=== PATIENT | female | born 1980 | race Caucasian/White ===

== ENCOUNTER 2018-09-28 22:20 | Emergency (ER) | payer OTHER, MEDICAID ==
[~2018-09-28] VITALS: Ht 175.3 cm; Wt 83.9 kg
[~2018-09-28 22:20] MED LIST: ACETAMINOPHEN-1 EAC1 PO; CEPHALEXIN 500500 M3 PO; CLEOCIN HCL300 MG PO; DIFLUCAN150 M1 PO; FLAGYL500 MG PO; NORCO 5-325 TA1 EACH PO
[2018-09-28] MEDS ORDERED: NEURONTIN 300300 M1 PO (22:33)
[2018-09-28] MEDS ORDERED: XANAX1 MG PO (22:34)
[2018-09-29 00:20] LABS: URINE BILIRUBIN NEGATIVE (Negative); URINE BLOOD 1+ (Negative); URINE CLARITY CLEAR; URINE COLOR YELLOW; URINE GLUCOSE-RANDOM NEGATIVE (Negative); URINE KETONES NEGATIVE (Negative); URINE LEUKOCYTES-REFLEX 2+ (Negative); URINE NITRITE-REFLEX POSITIVE (Negative); URINE PROTEIN TRACE (Negative); URINE SPECIFIC GRAVITY >= 1.030 (1.005-1.030); URINE UROBILINOGEN 0.2 E.U./dl (0.2-1.0)
[2018-09-29 00:29] LABS: CASTS None Seen /LPF (None Seen); SQUAMOUS >10 Many /LPF (0-3)
[2018-09-29 00:30] LABS: CRYSTALS None Seen /LPF (None Seen)
[2018-09-29] MEDS ORDERED: FLAGYL500 M1 PO (01:14)
[2018-09-29 01:44] VITALS: BP 142/76
== END 2018-09-29 01:44 | disposition home or self-care (01) ==
LOC: M.ERS 22:20
PROVIDERS: Personal Emergency Response Attendant
DX: A59.00 Urogenital trichomoniasis, unspecified (principal); N76.0 Acute vaginitis; Z98.51 Tubal ligation status; Z98.890 Other specified postprocedural states; Z88.5 Allergy status to narcotic agent; Z88.2 Allergy status to sulfonamides

== ENCOUNTER 2019-04-10 08:52 | Emergency (ER) | payer OTHER, MEDICAID ==
[~2019-04-10] VITALS: Ht 175.3 cm; Wt 86.2 kg
[~2019-04-10 08:52] MED LIST changes: +FLAGYL500 M1 PO; +NEURONTIN 300300 M1 PO; +XANAX1 MG PO
[2019-04-10] MEDS ORDERED: NORCO 5-325 TA1 EAC1 PO (09:24)
[2019-04-10] MEDS ORDERED: AMOXICILLIN 50500 MG PO (09:24)
[2019-04-10 09:37] VITALS: BP 125/85
== END 2019-04-10 09:37 | disposition home or self-care (01) ==
LOC: M.ERS 08:52
DX: K02.9 Dental caries, unspecified (principal); Z88.2 Allergy status to sulfonamides; Z88.6 Allergy status to analgesic agent; Z98.51 Tubal ligation status; Z98.890 Other specified postprocedural states

== ENCOUNTER 2019-09-20 18:29 | Emergency (ER) | payer OTHER, MEDICAID ==
[~2019-09-20] VITALS: Ht 175.3 cm; Wt 85.7 kg
[~2019-09-20 18:29] MED LIST changes: +AMOXICILLIN 50500 MG PO; +NORCO 5-325 TA1 EAC1 PO
[2019-09-20] MEDS ORDERED: KETOCONAZOLE 2200 MG PO (18:48)
[2019-09-20] MEDS ORDERED: PHENTERMINE H37.5 MG PO (18:50)
[2019-09-20] MEDS ORDERED: DOXYCYCLINE 10100 MG PO (20:13)
[2019-09-20] MEDS ORDERED: NYSTATIN100000 UNI SW&SWALLOW (20:13)
[2019-09-20] MEDS ORDERED: NORCO 5-325 TA1 EAC2 PO (20:13)
[2019-09-20 21:25] VITALS: BP 113/71
== END 2019-09-20 21:15 | disposition home or self-care (01) ==
LOC: M.ERS 18:29
DX: B37.0 Candidal stomatitis (principal); J98.8 Other specified respiratory disorders; B97.89 Other viral agents as the cause of diseases classified elsewhere; B96.89 Other specified bacterial agents as the cause of diseases classified elsewhere; Z20.828 Contact with and (suspected) exposure to other viral communicable diseases; L53.9 Erythematous condition, unspecified; F17.210 Nicotine dependence, cigarettes, uncomplicated; Z88.6 Allergy status to analgesic agent; Z88.2 Allergy status to sulfonamides; Z98.51 Tubal ligation status; Z98.890 Other specified postprocedural states

== ENCOUNTER 2019-10-03 15:49 | Emergency (ER) | payer OTHER, MEDICAID ==
[~2019-10-03] VITALS: Ht 175.3 cm; Wt 82.6 kg
[~2019-10-03 15:49] MED LIST changes: +DOXYCYCLINE 10100 MG PO; +KETOCONAZOLE 2200 MG PO; +NORCO 5-325 TA1 EAC2 PO; +NYSTATIN100000 UNI SW&SWALLOW; +PHENTERMINE H37.5 MG PO
[2019-10-03] MEDS ORDERED: KETOCONAZOLE15 GM TOP (16:39)
[2019-10-03] MEDS ORDERED: DIFLUCAN150 M1 PO (16:39)
[2019-10-03] MEDS ORDERED: ZPAK PO (16:39)
[2019-10-03 16:48] VITALS: BP 130/75
== END 2019-10-03 16:49 | disposition home or self-care (01) ==
LOC: M.ERS 15:49
DX: J22 Unspecified acute lower respiratory infection (principal); B37.0 Candidal stomatitis; L30.4 Erythema intertrigo; F17.210 Nicotine dependence, cigarettes, uncomplicated; Z88.2 Allergy status to sulfonamides; Z88.6 Allergy status to analgesic agent; Z98.51 Tubal ligation status; Z98.890 Other specified postprocedural states

== ENCOUNTER 2019-10-22 15:37 | Emergency (ER) | payer OTHER, MEDICAID ==
[~2019-10-22] VITALS: Ht 175.3 cm; Wt 81.7 kg
[~2019-10-22 15:37] MED LIST changes: +KETOCONAZOLE15 GM TOP; +ZPAK PO
[2019-10-22] MEDS ORDERED: GRISEOFULVIN U250 MG PO (15:46)
[2019-10-22] MEDS ORDERED: KETOCONAZOLE15 GM TOP (16:16)
[2019-10-22] MEDS ORDERED: NYSTATIN15 G3 TOP (16:16)
[2019-10-22 16:42] VITALS: BP 115/72
== END 2019-10-22 16:44 | disposition home or self-care (01) ==
LOC: M.ERS 15:37
DX: B37.9 Candidiasis, unspecified (principal); Z88.6 Allergy status to analgesic agent; Z88.2 Allergy status to sulfonamides; Z98.890 Other specified postprocedural states; Z98.51 Tubal ligation status

== ENCOUNTER 2019-11-04 17:54 | Emergency (ER) | payer OTHER, MEDICAID ==
[~2019-11-04] VITALS: Ht 175.3 cm; Wt 77.1 kg
[~2019-11-04 17:54] MED LIST changes: +GRISEOFULVIN U250 MG PO; +NYSTATIN15 G3 TOP
[2019-11-04] MEDS ORDERED: NEURONTIN300 MG PO (18:06)
[2019-11-04 19:37] VITALS: BP 140/90
== END 2019-11-04 19:39 | disposition home or self-care (01) ==
LOC: M.ERS 17:54
DX: J06.9 Acute upper respiratory infection, unspecified (principal); Z20.828 Contact with and (suspected) exposure to other viral communicable diseases; Z88.6 Allergy status to analgesic agent; Z88.2 Allergy status to sulfonamides; Z79.899 Other long term (current) drug therapy; Z98.51 Tubal ligation status; Z98.890 Other specified postprocedural states